=== PATIENT | female | born 1945 | race Caucasian/White ===

== ENCOUNTER → 2017-09-23 | Outpatient (CLI) | payer MEDICARE, BC ==
[~2017-09-23] MED LIST: ALBUTEROL 3 ML3 ML IH; AMITRIPTYLINE 225 MG PO; ASPIRIN 81MG TA81 MG PO; ATORVASTATIN 4040 MG PO; CEFTIN500 MG PO; COUMADIN 5MG TAB5 MG PO; FUROSEMIDE 40MG40 M1 PO; FUROSEMIDE80 M1 PO; GEMFIBROZIL600 MG PO; GLIMEPIRIDE 2MG2 MG PO; INSULIN GL100 UNITS/ SC; IPRATROPIU0.5 MG/2.5 IN; KLONOPIN 0.5MG0.5 MG PO; LISINOPRIL 5MG T5 MG PO; LOPRESSOR100 MG PO; METOPROLOL SUCC50 M1 PO; NOVOLOG FLEX100 U/ML SC; OXYGEN2 INH; PERCOCET 5/3251 EACH PO; PROAIR HFA0.09 MG/AC IH; SIMVASTATIN80 MG PO; TRAMADOL50 M1 PO; TRAZODONE 50MG50 MG PO; TYLENOL PM 5001 CAP PO; TYLENOL PM PO; VICODIN 5/500 T1 TAB PO; WARFARIN SODIUM1 MG PO; ZITHROMAX 250M250 MG PO
[2017-09-23 12:28] LABS: BUN 19 mg/dL (7-18)
[2017-09-23 12:30] LABS: GFR (ESTIMATED) 49 ML/MIN (59-)
--- NOTE | 2017-09-24 06:08 | RADIOLOGY REPORT PS360 ---
CHEST(2 VIEWS-NOT PORTABLE) HISTORY: Pneumonia F/U PNEUMONIA/COPD ORDERING PHYSICIAN: Mo Mccurdy MD PATIENT AGE: 71 years COMPARISON: 03/12/2014 FINDINGS: There has been prior median sternotomy. There is mild cardiomegaly without failure. Right ventricular pacemaker is present. There is chronic coarsening of the bronchovascular markings. Chronic changes are noted in the right lung base. Patchy density is present in the left lung base which may be due to an area of infiltrate. There are no recent exams at this institution available for comparison.. No acute bony anomalies. Bone plate is present in the lower cervical spine. IMPRESSION: 1. Patchy infiltrate in the left lung base. 2. Chronic changes and postsurgical changes with mild cardiomegaly
== END ==
LOC: LAB 11:03
PROVIDERS: Family Medicine
DX: E11.9 Type 2 diabetes mellitus without complications (principal); D64.9 Anemia, unspecified